=== PATIENT | female | born 1955 | race Hispanic/Latino ===

== ENCOUNTER 2020-04-25 15:28 | Outpatient (CLI) | payer BC ==
--- NOTE | 2020-04-25 16:10 | RAD ---
Exam: Lumbar spine 2 views HISTORY: Back pain FINDINGS: 5 lumbar type vertebra. Lumbar spine vertebral body heights are maintained. No fracture. Di sc space heights are preserved. No spondylolisthesis or spondylolysis. Visualized sacrum and bony pelvis are intact IMPRESSION: No radiographic evidence of significant degenerative change. MRI if clinically warranted.
== END 2020-04-25 15:29 | disposition home or self-care (01) ==
LOC: BICRAD 15:28
PROVIDERS: ATTEND Specialist
DX: M54.9 Dorsalgia, unspecified (principal)
CPT/HCPCS: 72100

== ENCOUNTER 2020-04-30 14:51 | Outpatient (CLI) | payer BC ==
--- NOTE | 2020-04-30 15:43 | BD ---
EXAM: DEXA bone density examination HISTORY: 65-year-old postmenopausal female for screening COMPARISON: None FINDINGS: L1--bone mineral density 0.629 g/sq cm; T score -3.3 L2--bone mineral density 0.731 g/sq cm; T score -2.7 L3--bone mineral density 0.768 g/sq cm; T score -2.9 L4--bone mineral density 0.758 g/sq cm; T score -2.8 Total L1-L4--bone mineral density 0.725 g/sq cm; T score -2.9 Left femoral neck--bone mineral density0.583; T score -2.4 Total proximal left femur--bone mineral density 0.721; T score -1.8 IMPRESSION: Osteoporosis.
--- NOTE | 2020-05-02 15:09 | MMO ---
Bilateral MAMMO Bilat Screen [facility]. CLINICAL HISTORY: Patient is 65 years old and is seen for screening. The patient has no family history of breast cancer. The patient has no personal history of cancer. VIEWS: The views performed were: bilateral craniocaudal with tomosynthesis and bilateral mediolateral oblique with tomosynthesis. FILMS COMPARED: The present examination has been compared to a prior imaging study performed at This study has been interpreted with the assistance of computer-aided detection. MAMMOGRAM FINDINGS: The breasts are almost entirely fat. There are no suspicious masses, suspicious calcifications, or new areas of architectural distortion. IMPRESSION: THERE IS NO MAMMOGRAPHIC EVIDENCE OF MALIGNANCY. A ROUTINE FOLLOW-UP MAMMOGRAM IN 1 YEAR IS RECOMMENDED. THE RESULTS OF THIS EXAM WERE SENT TO THE PATIENT. ACR BI-RADS Category 1 - Negative MAMMOGRAPHY NOTE: 1. A negative mammogram report should not delay a biopsy if a dominant of clinically suspicious mass is present. 2. Approximately 10% to 15% of breast cancers are not detected by mammography. 3. Adenosis and dense breasts may obscure an underlying neoplasm. Reported by: KIRILL RAMIREZ MD Electonically Signed: [id number]
== END 2020-04-30 14:52 | disposition home or self-care (01) ==
LOC: BICMAMMO 14:51
PROVIDERS: ATTEND Specialist
DX: Z12.31 Encounter for screening mammogram for malignant neoplasm of breast (principal); M81.0 Age-related osteoporosis without current pathological fracture
CPT/HCPCS: 77063; 77067; 77080

== ENCOUNTER 2021-09-01 13:33 | Outpatient (CLI) | payer BC | END 2021-09-01 13:34 | disposition home or self-care (01) | LOC: BICMAMMO 13:33 | PROVIDERS: ATTEND Specialist | DX: Z12.31 Encounter for screening mammogram for malignant neoplasm of breast (principal); Z80.3 Family history of malignant neoplasm of breast | CPT/HCPCS: 77063; 77067 ==

== ENCOUNTER 2021-09-03 13:59 | Outpatient (CLI) | payer BC | END 2021-09-03 14:00 | disposition home or self-care (01) | LOC: BICMAMMO 13:59 | PROVIDERS: ATTEND Specialist | DX: R92.8 Other abnormal and inconclusive findings on diagnostic imaging of breast (principal) ==

== ENCOUNTER 2022-10-28 10:41 | Outpatient (CLI) | payer MEDICARE | END 2022-10-28 10:42 | disposition home or self-care (01) | LOC: BICMAMMO 10:41 | PROVIDERS: ATTEND Specialist | DX: Z12.31 Encounter for screening mammogram for malignant neoplasm of breast (principal); Z13.820 Encounter for screening for osteoporosis; M85.89 Other specified disorders of bone density and structure, multiple sites; Z80.3 Family history of malignant neoplasm of breast | CPT/HCPCS: 77063; 77067; 77080 ==